=== PATIENT | female | born 1945 | race Asian ===

== ENCOUNTER 2017-09-02 11:21 | Emergency (ER) | payer MEDICARE ==
[~2017-09-02] VITALS: Ht 154.9 cm; Wt 63.4 kg
[~2017-09-02 11:21] MED LIST: ALLO100T30 PO; AMLO5TAB2 PO; ASPI-621 PO; CARV6.2512 PO; CARV6.252 PO; CLON0.2T PO; COLC0.6T37 PO; HYDR1TAB14 PO; LISI-167 PO; LISI2.5T PO; VERA240C2 PO; VICODIN PO
[2017-09-02 11:27] VITALS: BP 114/78
== END 2017-09-02 12:44 | disposition home or self-care (01) ==
LOC: ED 12:00
DX: S60.212A Contusion of left wrist, initial encounter (principal); S60.211A Contusion of right wrist, initial encounter; S80.01XA Contusion of right knee, initial encounter; S90.02XA Contusion of left ankle, initial encounter; I10 Essential (primary) hypertension; M10.9 Gout, unspecified; V19.40XA Pedal cycle driver injured in collision with unspecified motor vehicles in traffic accident, initial encounter; Y93.89 Activity, other specified; Y99.8 Other external cause status; Y92.410 Unspecified street and highway as the place of occurrence of the external cause
CPT/HCPCS: 99284